=== PATIENT | male | born 1965 | race Caucasian/White ===

== ENCOUNTER → 2019-03-08 09:04 | Outpatient (BNVA) | payer BC, SELFPAY | PROVIDERS: Family Provider Nurse Practitioner Family; Visit Provider Nurse Practitioner Family | DX: Z76.89 Persons encountering health services in other specified circumstances (principal); E78.5 Hyperlipidemia, unspecified; I10 Essential (primary) hypertension; K21.9 Gastro-esophageal reflux disease without esophagitis | CPT/HCPCS: 80048; 80061; 84443 ==

== ENCOUNTER → 2019-03-24 11:36 | Outpatient (BNVA) | payer BC, SELFPAY | PROVIDERS: Family Provider Nurse Practitioner Family; Visit Provider Nurse Practitioner Family | DX: D50.9 Iron deficiency anemia, unspecified (principal); E78.2 Mixed hyperlipidemia; D64.9 Anemia, unspecified; I10 Essential (primary) hypertension | CPT/HCPCS: 80076; 83540; 85007; 85027 ==

== ENCOUNTER → 2019-11-16 10:15 | Outpatient (BNVA) | payer BC, SELFPAY | PROVIDERS: Family Provider Nurse Practitioner Family; Visit Provider Nurse Practitioner Family | DX: K14.6 Glossodynia (principal); D50.9 Iron deficiency anemia, unspecified; L23.9 Allergic contact dermatitis, unspecified cause; R53.83 Other fatigue; W57.XXXA Bitten or stung by nonvenomous insect and other nonvenomous arthropods, initial encounter | CPT/HCPCS: 80053; 82306; 82607; 85025; 86618; 86666; 86757 ==

== ENCOUNTER 2020-01-13 13:02 | Outpatient (CLI) | payer BC, SELFPAY ==
[2020-01-13 14:07] LABS: Basophils # 0.1 10^3/uL (0.0-0.1); Basophils % 0.9 %; Eosinophils # 0.1 10^3/uL (0.0-0.8); Eosinophils % 1.3 %; Hematocrit 43.8 % (42.0-52.0); Lymphocytes # 2.1 10^3/uL (0.8-4.8); Lymphocytes % 28.2 %; Mean Corpuscular Hemoglobin 29.5 pg (28.0-34.0); Mean Corpuscular Volume 92.4 fL (80-94); Mean Platelet Volume 10.3 fL (7.4-10.4); Monocytes # 0.5 10^3/uL (0.2-0.9); Monocytes % 6.7 %; Neutrophils # 4.67 10^3/uL (1.8-7.7); Neutrophils % 62.6 %; Nucleated Red Blood Cells % 0 %; Platelet Count 326 10^3/cmm (130-400); Red Blood Count 4.74 10^6/uL (4.1-5.3); Red Cell Distribution Width 12.2 % (12.1-15.1); White Blood Count 7.5 10^3/uL (4.0-10.0)
[2020-01-13 14:21] LABS: Alanine Aminotransferase 13 U/L (0-41); Albumin Level 4.4 g/dL (3.5-5.2); Alkaline Phosphatase 85 IU/L (40-130); Anion Gap 13.7 (5-19); Aspartate Amino Transferase 11 U/L (0-40); Blood Urea Nitrogen 16 mg/dL (6-20); Calcium 9.3 mg/dL (8.5-10.5); Carbon Dioxide 28 mmol/L (22-29); Chloride 102 mmol/L (98-107); Ferritin 21 ng/mL (30-400); Globulin 2.7 g/dL (1.3-4.6); Glomerular Filtration Rate 57.1 mL/min (90-130); Glucose 98 mg/dL (65-115); Osmolality Calculated 291 mOsm/kg (285-295); Potassium 3.7 mmol/L (3.5-5.1); Sodium 140 mmol/L (136-145); Total Bilirubin 0.3 mg/dL (0.15-1.2); Total Protein 7.1 g/dL (6.6-8.7)
== END 2020-01-13 13:03 | disposition home or self-care (01) ==
PROVIDERS: Visit Provider Registered Nurse
DX: I10 Essential (primary) hypertension (principal); D50.9 Iron deficiency anemia, unspecified
CPT/HCPCS: 36415; 80053; 82728; 85025

== ENCOUNTER → 2020-01-16 13:41 | Outpatient (BNVA) | payer BC, SELFPAY | PROVIDERS: Family Provider Nurse Practitioner Family; Visit Provider Registered Nurse | DX: J01.40 Acute pansinusitis, unspecified (principal); I10 Essential (primary) hypertension; D50.9 Iron deficiency anemia, unspecified | CPT/HCPCS: 83540; 83550 ==

== ENCOUNTER → 2020-09-06 09:56 | Outpatient (BNVA) | payer OTHER, SELFPAY | PROVIDERS: Family Provider Nurse Practitioner Family; Visit Provider Nurse Practitioner Family | DX: Z11.52 Encounter for screening for COVID-19 (principal); Z20.822 Contact with and (suspected) exposure to COVID-19 | CPT/HCPCS: 87635 ==

== ENCOUNTER → 2020-10-12 10:56 | Outpatient (BNVA) | payer OTHER, SELFPAY | PROVIDERS: Family Provider Nurse Practitioner Family; Visit Provider Registered Nurse | DX: I10 Essential (primary) hypertension (principal); Z76.89 Persons encountering health services in other specified circumstances | CPT/HCPCS: 80053; 80061; 85025; 86618; 86666; 86757 ==

== ENCOUNTER → 2022-06-18 09:49 | Outpatient (BNVA) | payer SELFPAY | PROVIDERS: Family Provider Nurse Practitioner Family; PCP Registered Nurse; Visit Provider Thoracic Surgery (Cardiothoracic Vascular Surgery) | DX: L02.212 Cutaneous abscess of back [any part, except buttock and flank] (principal); I96 Gangrene, not elsewhere classified | CPT/HCPCS: 87070; 87077; 87186 ==

== ENCOUNTER → 2022-06-26 11:35 | Outpatient (BNVA) | payer OTHER, SELFPAY | PROVIDERS: Family Provider Nurse Practitioner Family; PCP Registered Nurse; Visit Provider Registered Nurse | DX: Z00.00 Encounter for general adult medical examination without abnormal findings (principal); I10 Essential (primary) hypertension; E78.5 Hyperlipidemia, unspecified | CPT/HCPCS: 80053; 80061; 85025 ==

== ENCOUNTER → 2023-01-16 13:11 | Outpatient (BNVA) | payer OTHER, SELFPAY | PROVIDERS: Family Provider Nurse Practitioner Family; PCP Registered Nurse; Visit Provider Registered Nurse | DX: R10.9 Unspecified abdominal pain (principal); R50.9 Fever, unspecified | CPT/HCPCS: 81000 ==

== ENCOUNTER → 2023-01-21 09:12 | Outpatient (BNVA) | payer OTHER, SELFPAY | PROVIDERS: Family Provider Nurse Practitioner Family; PCP Registered Nurse; Visit Provider Registered Nurse | DX: R50.9 Fever, unspecified (principal) | CPT/HCPCS: 80053; 85025; 85651; 86140 ==

== ENCOUNTER → 2023-01-22 16:52 | Outpatient (BNVA) | payer OTHER, SELFPAY | PROVIDERS: Family Provider Nurse Practitioner Family; PCP Registered Nurse; Visit Provider Registered Nurse | DX: R50.9 Fever, unspecified (principal); R73.9 Hyperglycemia, unspecified | CPT/HCPCS: 83036 ==

== ENCOUNTER → 2023-10-30 11:38 | Outpatient (BNVA) | payer OTHER, SELFPAY | PROVIDERS: Family Provider Nurse Practitioner Family; PCP Registered Nurse; Visit Provider Registered Nurse | DX: I10 Essential (primary) hypertension (principal); D50.9 Iron deficiency anemia, unspecified; E53.8 Deficiency of other specified B group vitamins | CPT/HCPCS: 80053; 82607; 83550; 85025 ==

== ENCOUNTER 2023-11-23 10:15 | Day surgery (SDC) | payer OTHER, SELFPAY ==
[2023-11-23 10:34] VITALS: BP 170/105; PULSE 54; RESP 18; TEMP 36.1; O2SAT 96; BMI 27.0
[2023-11-23] MEDS: sodium chloride 0.9% 1,000 ML 30 ML IV (10:38)
--- NOTE | 2023-11-23 11:06 | ANES.PREANE2 ---
Pre-Anesthetic Assessment Height/Weight: Height 1.85 m Weight 92.986 kg Temp Pulse Resp BP Pulse Ox O2 Del Method 97.0 F L 54 L 18 170/105 96 Room Air 11/23/23 10:34 11/23/23 10:34 11/23/23 10:34 11/23/23 10:34 11/23/23 10:34 11/23/23 10:34 Preop Diagnosis: Anemia Operation Date: 11/23/23 10:15 Proposed Procedures p EGD- k21.9, d50.9(Not Applicable) - Lucio Torres, DO Was Beta Yenni taken within 24 hours: Yes Was Clonidine taken within 24 hours: N/A Last intake: Intake Last Liquid Date 11/22/23 Last Liquid Time 23:50 Last Solid Date 11/22/23 Last Solid Time 23:50 Social No alcohol and No tobacco Exam alert, oriented x 3, clear to auscultation bilaterally and regular rate & rhythm Airway Submandibular: within normal limits Cervical ROM: within normal limits Mallampati: Class II Dentition: full History/ROS No significant history except as noted and No significant complaints Pulmonary Hx PE CV/HEM Hypertension (Hx PFO repair) None reported Hepatic None reported GI None reported Metabolic None reported Musc/skel None reported Neuropsych Cerebrovascular Accident Anesthetic Plan ASA status: 3 Anesthesia: Anesthesia Evaluation and MAC Risk of > 500 ml blood loss (7ml/kg in children): No Medications/Allergies Home Medications Medication Instructions Recorded Confirmed Last Taken Type glucosamine sulfate 500 mg tablet 1,000 mg PO DAILY 02/15/19 11/19/23 11/22/23 History simvastatin 20 mg tablet 20 mg PO DAILY #90 tabs 06/12/21 11/19/23 11/22/23 Rx hydralazine 25 mg tablet 25 mg PO BID 06/26/22 11/19/23 11/23/23 09:00 History clopidogrel 75 mg tablet 75 mg PO DAILY 10/30/23 11/19/23 11/17/23 History amlodipine 5 mg tablet 5 mg PO DAILY 11/19/23 11/19/23 11/23/23 09:00 History cholecalciferol (vitamin D3) 50 50 mcg PO DAILY 11/19/23 11/19/23 11/22/23 History mcg (2,000 unit) capsule (Vitamin D3) ferrous sulfate 325 mg (65 mg 325 mg PO BID 11/19/23 11/19/23 11/22/23 History iron) tablet (FeroSul) metoprolol tartrate 25 mg tablet 25 mg PO BID 11/19/23 11/19/23 11/23/23 09:00 History multivitamin with folic acid 400 1 tab PO DAILY 11/19/23 11/19/23 11/22/23 History mcg tablet (Daily-Jocelyn (with folic acid)) pantoprazole 40 mg tablet,delayed 40 mg PO BID 11/19/23 11/19/23 11/22/23 History release potassium chloride 20 mEq 20 meq PO DAILY 11/19/23 11/19/23 11/22/23 History tablet,extended release sertraline 50 mg tablet 75 mg PO BID 11/19/23 11/19/23 11/22/23 History sucralfate 1 gram tablet 1 g PO BID 11/19/23 11/19/23 11/22/23 History telmisartan 80 0.5 tab PO DAILY 11/19/23 11/19/23 11/22/23 History mg-hydrochlorothiazide 25 mg tablet trazodone 50 mg tablet 50 - 100 mg PO BEDTIME 11/19/23 11/19/23 11/22/23 History Allergies Allergy/AdvReac Type Severity Reaction Status Date / Time ciprofloxacin Allergy Mild rash Verified 11/05/23 08:14 Current Medications Generic Name Dose Route Start Last Admin Trade Name Freq PRN Reason Stop Dose Admin Sodium Chloride 1,000 mls @ 30 mls/hr 11/23/23 10:30 11/23/23 10:38 Sodium Chloride 0.9% IV 11/24/23 10:29 30 mls/hr .Q24H LLOYD Administration PFSH Anesthesia Medical History Family history of colon cancer sister Depression Essential hypertension Hyperlipidemia Insomnia Anemia Colon polyp, hyperplastic History of CVA (cerebrovascular accident) Diagnosed 10/2015. Dr. Harmon-neurology HTN (hypertension), benign Surgical History History of loop recorder placed in Mar 2016 Hx of appendectomy S/P patent foramen ovale closure Social History Smoking and tobacco/nicotine status: never used tobacco/nicotine Second hand smoke exposure: No Alcohol intake: unknown Substance/Drug Use: never Household members: spouse Housing: House Marital status: Current gender identity: Male Data Anesthesia Cardiac Studies: No Data to Display
--- NOTE | 2023-11-23 11:42 | W.PM.OPSUD ---
Surgery/Procedure H&P Update DATE OF PROCEDURE: November 23, 2023 DATE H&P PERFORMED: 11/05/23 H&P UPDATE INFORMATION: I have reviewed H&P completed within last 30 days, I have examined patient prior to procedure and No changes to prior documentation PREOP DIAGNOSIS: Anemia PLANNED PROCEDURE: Operation Date: 11/23/23 10:15 Proposed Procedures p EGD- k21.9, d50.9(Not Applicable) - Lucio Torres DO
[2023-11-23 12:02] VITALS: BP 126/83; PULSE 52; RESP 20; TEMP 36.1; O2SAT 95
[2023-11-23 12:24] VITALS: BP 143/86; PULSE 50; RESP 20; O2SAT 97
--- NOTE | 2023-11-23 12:34 | ANE.PACU2 ---
Inpatient post-anesthesia follow up: Airway intact: Yes Vital signs: Temperature 97.0 F Pulse Rate 50 Respiratory Rate 20 Blood Pressure 143/86 Pulse Oximetry 97 Oxygen Delivery Me thod Room Air Oxygen Flow Rate Fraction of Inspir ed Oxygen Hydration adequate: Yes Nausea and vomiting: No Pain level: 1 Mental status: Baseline
== END 2023-11-23 12:34 | disposition home or self-care (01) ==
PROVIDERS: PCP Registered Nurse; Visit Provider Surgery
PROC: 0DJ08ZZ Inspection of Upper Intestinal Tract, Via Natural or Artificial Opening Endoscopic (ICD-10-PCS; CPT 43235; principal; 2023-11-23 10:15)
DX: D50.9 Iron deficiency anemia, unspecified (principal); K29.50 Unspecified chronic gastritis without bleeding; K21.00 Gastro-esophageal reflux disease with esophagitis, without bleeding; Z86.711 Personal history of pulmonary embolism; I10 Essential (primary) hypertension; Z86.73 Personal history of transient ischemic attack (TIA), and cerebral infarction without residual deficits
CPT/HCPCS: 43239; 43251; 88305; 88342; J2704; J7030

== ENCOUNTER 2023-11-30 16:11 | Outpatient (CLI) | payer OTHER, SELFPAY ==
--- NOTE | 2023-11-30 16:30 | US_ITS ---
WS: [id number] ULTRASOUND LEFT BREAST, Limited HISTORY: N60.02 - Solitary cyst of left breast, male patient COMPARISON: None available. TECHNIQUE: 2-D and Doppler. LEFT breast ultrasound is directed to the 7:00 area by the patient. There is a palpable abnormality. Palpable abnormality corresponds to an irregular shaped indistinct and slightly hyperechoic mass. Mas s measures 1.4 x 1.8 x 1.1 cm. This is indistinct with slight increased echogenicity. No increased va scularity. Very benign in appearance. No additional abnormalities. US/US breast LT complete [id number] IMPRESSION: BI-RADS: 2- Benign FOLLOW-UP: See Report Palpable abnormality at 7:00 in the LEFT breast is most likely a very small lip tiffany or area of fat necrosis.
== END 2023-11-30 16:12 | disposition home or self-care (01) ==
LOC: RAD 16:13
PROVIDERS: PCP Registered Nurse; Visit Provider Registered Nurse
DX: N63.24 Unspecified lump in the left breast, lower inner quadrant (principal)
CPT/HCPCS: 76641

== ENCOUNTER 2023-12-07 10:02 | Outpatient (CLI) | payer OTHER, SELFPAY ==
--- NOTE | 2023-12-07 08:00 | US_ITS ---
WS: [id number] RIGHT UPPER QUADRANT ULTRASOUND HISTORY: Abdominal pain COMPARISON: 08/24/2015 Liver: 15.3 cm in length. Normal size liver and echogenicity. No bile duct dilatation or mass. Hepati c hemangioma noted on the prior ultrasound from 2015 is not identified today. Portal Vein: Normal hepatopetal flow with monophasic waveform. Gallbladder: Normally distended gallbladder with no stones or wall thickening. CBD: 0.3 cm Pancreas: Completely obscured by bowel gas. Right kidney: 10.1 cm in length. Normal size and echogenicity. No hydronephrosis or mass. Aorta and IVC: Unremarkable abdominal aorta and IVC. No ascites. US/US gall bladder [id number] IMPRESSION: 1. Negative gallbladder. 2. Previously described hepatic hemangioma is not identified today. 3. Negative liver.
== END 2023-12-07 10:03 | disposition home or self-care (01) ==
LOC: RAD 10:03
PROVIDERS: PCP Registered Nurse; Visit Provider Surgery
DX: R10.9 Unspecified abdominal pain (principal)
CPT/HCPCS: 76705

== ENCOUNTER 2023-12-11 07:18 | Oncology outpatient (recurring) (ONCR) | payer OTHER, SELFPAY ==
[2023-12-11 08:04] LABS: Basophils # 0.1 10^3/uL (0.0-0.1); Basophils % 1.3 %; Eosinophils # 0.1 10^3/uL (0.0-0.8); Eosinophils % 2.7 %; Hematocrit 42.5 % (37-53); Lymphocytes # 1.2 10^3/uL (0.8-4.8); Lymphocytes % 26.7 %; Mean Corpuscular HGB Conc 30.6 g/dL (30-55); Mean Corpuscular Hemoglobin 26.7 pg (27-33); Mean Corpuscular Volume 87.3 fl (82-101); Mean Platelet Volume 10.1 fL (7.4-10.4); Monocytes # 0.3 10^3/uL (0.2-0.9); Monocytes % 7.6 %; Neutrophils # 2.78 10^3/uL (1.8-7.7); Neutrophils % 61.7 %; Nucleated Red Blood Cells % 0 %; Platelet Count 219 10^3/cmm (157-399); Red Blood Count 4.87 10^6/uL (3.85-5.65); Reticulocyte % 0.9 % (0.5-2.0)
[2023-12-11 08:18] LABS: Alanine Aminotransferase 13 U/L (0-41); Albumin Level 4.2 g/dL (3.5-5.2); Alkaline Phosphatase 73 U/L (40-130); Anion Gap 11.7 (5-19); Aspartate Amino Transferase 15 U/L (0-40); Blood Urea Nitrogen 14 mg/dL (8-23); Calcium 8.8 mg/dL (8.5-10.5); Carbon Dioxide 28 mmol/L (22-29); Chloride 105 mmol/L (98-107); Creatinine Clr Calc Pharmacy 80.1722; Ferritin 49 ng/mL (30-400); Globulin 1.7 g/dL (1.3-4.6); Glomerular Filtration Rate 61.8 mL/min (90-130); Glucose 103 mg/dL (65-115); Iron 73 ug/dL (59-158); Lactate Dehydrogenase 147 U/L (135-225); Osmolality Calculated 293 mOsm/kg (285-295); Percent Saturation 21.7 % (20-50); Potassium 3.7 mmol/L (3.5-5.1); Sodium 141 mmol/L (136-145); Total Bilirubin 0.3 mg/dL (0.15-1.2); Total Iron Binding Capacity 336 mcg/dl; Total Protein 5.9 g/dL (6.6-8.7); Unsaturated Iron Binding 263 ug/dL (112-347)
[2023-12-11] MEDS: cyanocobalamin 1,000 mcg/mL SDV 1000 MCG IM (09:35)
[2023-12-15 17:14] LABS: Vitamin B12 296 pg/mL (232-1245)
[2023-12-17 12:19] LABS: Soluble Transferrin Receptor 1.78 mg/L (0.76-1.76)
== END 2024-01-09 23:59 | disposition home or self-care (01) ==
PROVIDERS: PCP Registered Nurse; Visit Provider Internal Medicine Hematology & Oncology
DX: E61.1 Iron deficiency (principal); Z79.899 Other long term (current) drug therapy
CPT/HCPCS: 36415; 80053; 82607; 82728; 82746; 83540; 83550; 83615; 84238; 85025; 85045; 96372; J3420

== ENCOUNTER 2023-12-11 09:51 | Outpatient (CLI) | payer OTHER, SELFPAY ==
--- NOTE | 2023-12-11 10:00 | NM_ITS ---
WS: [id number] NUCLEAR MEDICINE HIDA SCAN WITH GALLBLADDER EJECTION FRACTION HISTORY: Abdominal pain COMPARISON: Gallbladder ultrasound 12/07/2023 TECHNIQUE: The patient was intravenously injected with 7.6 mCi of TC99m Mebrofenin. Immediate imaging over the right upper quadrant was followed by 5 minute image and additional images for a total of 60 minutes. Normal uptake of radiotracer throughout the liver. Activity identified in the gallbladder at 10 minutes and well distended by 60 minutes. Activity in the proximal small bowel was seen by 16 minutes. Good washout of the radiotracer from the liver by 60 minutes. The patient then drank 8 ounces of Ensure Plus. Ejection fraction at 60 minutes was 82%. Normal GB ej ection fraction is 35-75%. Post fatty meal symptoms: None. NM/NM hepatobiliary w phar* [id number] IMPRESSION: 1. Normal HIDA scan. 2. Normal gallbladder ejection fraction.
== END 2023-12-11 09:52 | disposition home or self-care (01) ==
LOC: RAD 09:51
PROVIDERS: PCP Registered Nurse; Visit Provider Surgery
DX: K80.50 Calculus of bile duct without cholangitis or cholecystitis without obstruction (principal); R10.9 Unspecified abdominal pain
CPT/HCPCS: 78227; A9537

== ENCOUNTER 2024-01-12 10:29 | Day surgery (SDC) | payer OTHER, SELFPAY ==
[2024-01-12] VITALS (10 sets, daily range): BP systolic 129–185; BP diastolic 89–121; PULSE 44–63; RESP 16–20; TEMP 36.1–36.3; O2SAT 93–100; BMI 25.0
--- NOTE | 2024-01-12 11:08 | W.PM.OPSUD ---
Surgery/Procedure H&P Update DATE OF PROCEDURE: January 12, 2024 DATE H&P PERFORMED: 01/04/24 H&P UPDATE INFORMATION: I have reviewed H&P completed within last 30 days, I have examined patient prior to procedure and No changes to prior documentation PLANNED PROCEDURE: Operation Date: 01/12/24 11:55 Proposed Procedures p Laparoscopic Cholecystectomy 84815, k82.8(Not Applicable) - Lucio Torres DO
[2024-01-12] MEDS: sodium chloride 0.9% 1,000 ML 30 ML IV (11:12)
--- NOTE | 2024-01-12 11:35 | ANES.PREANE2 ---
Pre-Anesthetic Assessment Height/Weight: Height 6 ft 2 in Weight 195 lb Temp Pulse Resp BP Pulse Ox O2 Del Method 97 F L 60 18 129/89 97 Room Air 01/12/24 10:58 01/12/24 10:58 01/12/24 10:58 01/12/24 10:58 01/12/24 10:58 01/12/24 10:58 Preop Diagnosis: Chronic cholecystitis Operation Date: 01/12/24 11:55 Proposed Procedures p Laparoscopic Cholecystectomy 72983, k82.8(Not Applicable) - Lucio Torres, DO Was Beta Yenni taken within 24 hours: N/A Was Clonidine taken within 24 hours: N/A Last intake: Intake Last Liquid Date 01/11/24 Last Liquid Time 23:00 Last Solid Date 01/11/24 Last Solid Time 19:00 Social No alcohol and No tobacco Exam alert, oriented x 3, clear to auscultation bilaterally and regular rate & rhythm Airway Submandibular: within normal limits Cervical ROM: within normal limits Mallampati: Class II Dentition: full Anesthetic Plan ASA status: 3 Anesthesia: General Other: No prior issues with anesthesia NPO since yesterday History of hypertension on telmisartan?HCTZ, hydralazine and metoprolol. BB taken yesterday. Preop BP 129/89 Prior CVAs, on chronic Plavix. Last taken 6 days ago Labs reviewed 12/11/2023 acceptable for procedure Plan for GETA Medications/Allergies Home Medications Medication Instructions Recorded Confirmed Last Taken Type glucosamine sulfate 500 mg tablet 1,000 mg PO DAILY 02/15/19 01/11/24 01/11/24 History simvastatin 20 mg tablet 20 mg PO DAILY #90 tabs 06/12/21 01/11/24 01/11/24 Rx hydralazine 25 mg tablet 25 mg PO BID 06/26/22 01/11/24 01/11/24 History clopidogrel 75 mg tablet 75 mg PO DAILY 10/30/23 01/11/24 01/06/24 History cholecalciferol (vitamin D3) 50 50 mcg PO DAILY 11/19/23 01/11/24 01/11/24 History mcg (2,000 unit) capsule (Vitamin D3) metoprolol tartrate 25 mg tablet 25 mg PO BID 11/19/23 01/11/24 01/11/24 History multivitamin with folic acid 400 1 tab PO DAILY 11/19/23 01/11/24 01/11/24 History mcg tablet (Daily-Jocelyn (with folic acid)) pantoprazole 40 mg tablet,delayed 40 mg PO BID 11/19/23 01/11/24 01/11/24 History release potassium chloride 20 mEq 20 meq PO DAILY 11/19/23 01/11/24 01/11/24 History tablet,extended release sertraline 50 mg tablet 75 mg PO BID 11/19/23 01/11/24 01/11/24 History telmisartan 80 0.5 tab PO DAILY 11/19/23 01/11/24 01/11/24 History mg-hydrochlorothiazide 25 mg tablet trazodone 50 mg tablet 50 - 100 mg PO BEDTIME 11/19/23 01/11/24 01/10/24 History sucralfate 1 gram tablet 1 g PO TID 90 days #270 tabs 12/07/23 01/11/24 01/11/24 Rx amlodipine 5 mg tablet 5 mg PO DAILY #90 tabs 12/10/23 01/11/24 01/11/24 Rx cyclobenzaprine 10 mg tablet 10 mg PO TID PRN muscle spasms 12/10/23 01/11/24 Unknown History riboflavin (vitamin B2) 400 mg 400 mg PO DAILY 12/10/23 01/11/24 01/11/24 History tablet tamsulosin 0.4 mg capsule (Flomax) 0.4 mg PO DAILY prostate #90 caps 12/10/23 01/11/24 01/11/24 Rx ferrous sulfate 325 mg (65 mg 325 mg PO BID 01/11/24 01/11/24 01/11/24 History iron) tablet (FeroSul) Allergies Allergy/AdvReac Type Severity Reaction Status Date / Time ciprofloxacin Allergy Mild rash Verified 01/11/24 15:41 Current Medications Generic Name Dose Route Start Last Admin Trade Name Freq PRN Reason Stop Dose Admin Sodium Chloride 1,000 mls @ 30 mls/hr 01/12/24 11:00 01/12/24 11:12 Sodium Chloride 0.9% IV 01/13/24 10:59 30 mls/hr .Q24H LLOYD Administration PFSH Anesthesia Medical History Family history of colon cancer sister Depression Essential hypertension Hyperlipidemia Insomnia Anemia Colon polyp, hyperplastic History of CVA (cerebrovascular accident) Diagnosed 10/2015. Dr. Harmon-neurology HTN (hypertension), benign Surgical History History of loop recorder placed in Mar 2016 Hx of appendectomy S/P patent foramen ovale closure Social History Smoking and tobacco/nicotine status: never used tobacco/nicotine Second hand smoke exposure: No Alcohol intake: unknown Substance/Drug Use: never Household members: spouse Housing: House Marital status: Current gender identity: Male Data Anesthesia Cardiac Studies: No Data to Display
[2024-01-12] MEDS: ceFAZolin 2,000 mg SDV 2000 MG IVP (11:48)
[2024-01-12] MEDS: lidocaine-epi 2% PF 1:200,000 20 mL SDV XX (12:37)
--- NOTE | 2024-01-12 12:37 | P.OP_ITS ---
Operative Report Date of procedure: January 12, 2024 Surgeon: Lucio Torres DO Brief History: This is a very pleasant 58-year-old gentleman who presented to office with abdominal pain. He was diagnosed with biliary dyskinesia. Laparoscopic cholecystectomy was indicated. The risks and benefits were explained and documented. Procedure: Preoperative diagnosis: Biliary dyskinesia Postoperative diagnosis: Same Procedure performed: Laparoscopic cholecystectomy Surgeon: Dr. Lucio Torres DO Estimated blood loss: 5 mL Specimens: Gallbladder to pathology Complications: None apparent Description of procedure: Patient was wheeled into the operative room and placed on the OR table in a supine position. Abdomen was inspected prepped and draped in usual sterile fashion. Time-out was performed and all present were in agreement. A 15 blade scalp was used to make a stab incision in the left upper quadrant and intra- abdominal insufflation was achieved using a Veress needle. After localizing the tissue incisions were made and a 5 millimeter trocar was placed into the umbilicus as well as 2 in the right upper quadrant. A 12 millimeter trocar was placed in the epigastrium. Gallbladder was grasped and elevated. The triangle of Calot was carefully dissected using blunt dissection and electrocautery until the triangle of Calot clearly identified. The cystic duct was clipped proximally and double clipped distally. The duct was then ligated proximally. The cystic artery was doubly clipped and ligated. The gallbladder was then removed from the liver bed using electrocautery. The gallbladder was removed from the abdomen using an Endo-Catch bag through the epigastric incision. The liver bed was inspected and no bleeding was seen. The abdomen was irrigated and suctioned. All ports removed. Skin was washed and dried. Incisions were closed with 4-0 Monocryl in a subcuticular interrupted fashion. Skin glue was applied. Patient tolerated the procedure well.
[2024-01-12] MEDS: fentaNYL 50 mcg/mL INJ 2mL IVP (13:07)
[2024-01-12] MEDS: ondansetron 2 mg/ML SDV 2 mL 4 MG IVP ×2 (13:34→13:53)
[2024-01-12] MEDS: diphenhydrAMINE 50 mg/mL SDV 1mL 12.5 MG IVP (14:07)
--- NOTE | 2024-01-12 14:57 | ANE.PACU2 ---
Inpatient post-anesthesia follow up: Airway intact: Yes Vital signs: Temperature 97.3 F Pulse Rate 60 Respiratory Rate 18 Blood Pressure 170/104 Pulse Oximetry 95 Oxygen Delivery Me thod Room Air Oxygen Flow Rate 6 Fraction of Inspir ed Oxygen Hydration adequate: Yes Nausea and vomiting: No Pain level: 1 Mental status: Baseline
== END 2024-01-12 14:58 | disposition home or self-care (01) ==
PROVIDERS: PCP Registered Nurse; Visit Provider Surgery
PROC: 0FT44ZZ Resection of Gallbladder, Percutaneous Endoscopic Approach (ICD-10-PCS; CPT 47562; principal; 2024-01-12 11:55)
DX: K81.1 Chronic cholecystitis (principal); I10 Essential (primary) hypertension; Z86.73 Personal history of transient ischemic attack (TIA), and cerebral infarction without residual deficits; Z79.02 Long term (current) use of antithrombotics/antiplatelets
CPT/HCPCS: 47562; 88304; J0330; J0690; J1100; J1200; J2405; J2704; J2710; J3010; J3490; J7030

== ENCOUNTER 2024-02-15 11:27 | Oncology outpatient (recurring) (ONCR) | payer OTHER, SELFPAY ==
[2024-02-15 12:14] LABS: Basophils # 0.1 10^3/uL (0.0-0.1); Basophils % 1.1 %; Eosinophils # 0.1 10^3/uL (0.0-0.8); Eosinophils % 1.9 %; Hematocrit 43.8 % (37-53); Lymphocytes # 1.6 10^3/uL (0.8-4.8); Lymphocytes % 30.3 %; Mean Corpuscular HGB Conc 32.2 g/dL (30-55); Mean Corpuscular Hemoglobin 28.7 pg (27-33); Mean Platelet Volume 9.8 fL (7.4-10.4); Monocytes # 0.4 10^3/uL (0.2-0.9); Neutrophils # 3.06 10^3/uL (1.8-7.7); Neutrophils % 58.5 %; Nucleated Red Blood Cells % 0 %; Platelet Count 207 10^3/cmm (157-399); Red Blood Count 4.92 10^6/uL (3.85-5.65); White Blood Count 5.24 10^3/uL (3.29-11.43)
[2024-02-15 12:15] LABS: Reticulocyte % 1.1 % (0.5-2.0)
[2024-02-15 12:56] LABS: Alanine Aminotransferase 12 U/L (0-41); Albumin Level 3.9 g/dL (3.5-5.2); Alkaline Phosphatase 83 U/L (40-130); Aspartate Amino Transferase 14 U/L (0-40); Blood Urea Nitrogen 11 mg/dL (8-23); Calcium 9.3 mg/dL (8.5-10.5); Carbon Dioxide 24 mmol/L (22-29); Chloride 102 mmol/L (98-107); Ferritin 48 ng/mL (30-400); Globulin 2.7 g/dL (1.3-4.6); Glomerular Filtration Rate 61.8 mL/min (90-130); Glucose 106 mg/dL (65-115); Iron 83 ug/dL (59-158); Lactate Dehydrogenase 139 U/L (135-225); Osmolality Calculated 286 mOsm/kg (285-295); Percent Saturation 26.7 % (20-50); Sodium 138 mmol/L (136-145); Total Bilirubin 0.2 mg/dL (0.15-1.2); Total Iron Binding Capacity 310 mcg/dl; Total Protein 6.6 g/dL (6.6-8.7); Unsaturated Iron Binding 227 ug/dL (112-347); Vitamin B12 434 pg/mL (232-1245)
[2024-02-15 13:48] LABS: Folate Level > 20.0 ng/mL (4.5-32.2)
[2024-02-19 11:54] LABS: Soluble Transferrin Receptor 1.08 mg/L (0.76-1.76)
== END 2024-03-11 23:59 | disposition home or self-care (01) ==
PROVIDERS: PCP Registered Nurse; Visit Provider Internal Medicine Hematology & Oncology
DX: E61.1 Iron deficiency (principal); Z79.899 Other long term (current) drug therapy
CPT/HCPCS: 36415; 80053; 82607; 82728; 82746; 83540; 83550; 83615; 84238; 85025; 85045

== ENCOUNTER 2024-03-16 08:32 | Day surgery (SDC) | payer OTHER, SELFPAY ==
[2024-03-16 08:45] VITALS: BP 113/71; PULSE 65; RESP 18; TEMP 36.2; O2SAT 95; BMI 25.7
[2024-03-16] MEDS: sodium chloride 0.9% 500 ML 15 ML IV (08:59)
--- NOTE | 2024-03-16 09:46 | ANES.PREANE2 ---
Pre-Anesthetic Assessment Height/Weight: Height 1.88 m Weight 90.718 kg Temp Pulse Resp BP Pulse Ox O2 Del Method 97.2 F L 65 18 113/71 95 Room Air 03/16/24 08:45 03/16/24 08:45 03/16/24 08:45 03/16/24 08:45 03/16/24 08:45 03/16/24 08:45 Preop Diagnosis: GERD / [place] screening Operation Date: 03/16/24 09:30 Proposed Procedures p EGD 28223, 51929, G0105, K21.9, K52.9(Not Applicable) - Lucio Torres DO s Colonoscopy(Not Applicable) - Lucio Torres DO Was Beta Yenni taken within 24 hours: Yes (metoprolol this monring) Was Clonidine taken within 24 hours: N/A Last intake: Intake Last Liquid Date 03/15/24 Last Liquid Time 20:00 Last Solid Date 03/14/24 Last Solid Time 22:30 Social No alcohol and No tobacco Airway Submandibular: within normal limits Cervical ROM: within normal limits Mallampati: Class II History/ROS No significant history except as noted Pulmonary None reported CV/HEM Hypertension chronick kidney disease Hepatic None reported GI Gastroesophageal Reflux Disease Metabolic None [place] [facility] [place] reported Anesthetic Plan ASA status: 2 Anesthesia: Anesthesia Evaluation and MAC Medications/Allergies Home Medications ?Medication ?Instructions ?Recorded ?Confirmed ?Last Taken ?Type glucosamine sulfate 500 mg tablet 500 mg PO BID 02/15/19 03/16/24 03/15/24 History simvastatin 20 mg tablet 20 mg PO DAILY #90 tabs 06/12/21 03/16/24 03/15/24 Rx hydralazine 25 mg tablet 25 mg PO BID 06/26/22 03/16/24 03/16/24 History clopidogrel 75 mg tablet 75 mg PO DAILY 10/30/23 03/16/24 03/10/24 History Held on 01/12/24. Instructions: Resume on 01/14/24. cholecalciferol (vitamin D3) 50 50 mcg PO DAILY 11/19/23 03/16/24 03/15/24 History mcg (2,000 unit) capsule (Vitamin D3) metoprolol tartrate 25 mg tablet 25 mg PO BID 11/19/23 03/16/24 03/16/24 History potassium chloride 20 mEq 20 meq PO DAILY 11/19/23 03/16/24 03/15/24 History tablet,extended release sertraline 50 mg tablet 75 mg PO BID 11/19/23 03/16/24 03/15/24 History telmisartan 80 0.5 tab PO DAILY 11/19/23 03/16/24 03/15/24 History mg-hydrochlorothiazide 25 mg tablet trazodone 50 mg tablet 50 - 100 mg PO BEDTIME 11/19/23 03/16/24 03/15/24 History Held on 01/12/24. Instructions: Resume on 01/13/24. sucralfate 1 gram tablet 1 g PO TID 90 days #270 tabs 12/07/23 03/16/24 03/15/24 Rx cyclobenzaprine 10 mg tablet 10 mg PO TID PRN muscle spasms 12/10/23 03/16/24 Unknown History riboflavin (vitamin B2) 400 mg 400 mg PO DAILY 12/10/23 03/16/24 03/15/24 History tablet tamsulosin 0.4 mg capsule (Flomax) 0.4 mg PO DAILY prostate #90 caps 12/10/23 03/16/24 03/15/24 Rx amlodipine 5 mg tablet 10 mg (2 x 5 mg) PO DAILY #180 tabs 01/14/24 03/16/24 03/16/24 Rx ferrous sulfate 325 mg (65 mg 325 mg PO BID #60 tabs 02/15/24 03/16/24 03/15/24 Rx iron) tablet (FeroSul) dicyclomine 20 mg tablet 20 mg PO QID 30 days #120 tabs 03/07/24 03/16/24 03/15/24 Rx Lactobacillus acidophilus 10 10,000 mmu cells PO BID 03/14/24 03/16/24 03/15/24 History billion cell capsule (Probiotic) calcium carbonate (Calcium 600) 600 mg PO DAILY 03/14/24 03/16/24 03/15/24 History magnesium carb,citrate,oxide 300 mg PO DAILY 03/14/24 03/16/24 03/15/24 History (Magnesium Complex) multivitamin with folic acid 400 1 tab PO DAILY 03/14/24 03/16/24 03/15/24 History mcg tablet (Daily-Jocelyn (with folic acid)) omeprazole 40 mg capsule,delayed 40 mg PO DAILY 03/14/24 03/16/24 03/15/24 History release pantoprazole 40 mg tablet,delayed 40 mg PO BEDTIME 03/14/24 03/16/24 03/15/24 History release Allergies Allergy/AdvReac Type Severity Reaction Status Date / Time ciprofloxacin Allergy Mild rash Verified 03/16/24 08:47 Current Medications Generic Name Dose Route Start Last Admin Trade Name Freq PRN Reason Stop Dose Admin Sodium Chloride 500 mls @ 15 mls/hr 03/16/24 08:38 03/16/24 08:59 Sodium Chloride 0.9% IV 03/17/24 08:37 15 mls/hr .Q24H PRN Administration COLONOSCOPY FLUIDS PFSH Anesthesia Medical History (Updated 03/07/24 @ 10:01 by Lucio Torres DO) Family history of colon cancer sister Depression Essential hypertension Hyperlipidemia Insomnia Anemia Colon polyp, hyperplastic History of CVA (cerebrovascular accident) Diagnosed 10/2015. Dr. Harmon-neurology HTN (hypertension), benign Surgical History (Updated 03/07/24 @ 10:01 by Lucio Torres DO) History of laparoscopic cholecystectomy History of loop recorder placed in Mar 2016 Hx of appendectomy S/P patent foramen ovale closure Social History Smoking and tobacco/nicotine status: never used tobacco/nicotine Second hand smoke exposure: No Alcohol intake: unknown Substance/Drug Use: never Household members: spouse Housing: House Marital status: Current gender identity: Male Data Anesthesia Cardiac Studies: No Data to Display
--- NOTE | 2024-03-16 09:53 | W.PM.OPSUD ---
Surgery/Procedure H&P Update DATE OF PROCEDURE: March 16, 2024 DATE H&P PERFORMED: 03/07/24 H&P UPDATE INFORMATION: I have reviewed H&P completed within last 30 days, I have examined patient prior to procedure and No changes to prior documentation PREOP DIAGNOSIS: GERD / [place] screening PLANNED PROCEDURE: Operation Date: 03/16/24 09:30 Proposed Procedures p EGD 10999, 92592, G0105, K21.9, K52.9(Not Applicable) - DO magali Fair Colonoscopy(Not Applicable) - Lucio Torres DO
[2024-03-16] MEDS: EPINEPHrine 1 mg/mL INJ XX (10:04)
[2024-03-16 10:34] VITALS: BP 131/83; PULSE 56; RESP 18; TEMP 36.3; O2SAT 94
[2024-03-16 10:53] VITALS: BP 145/86; PULSE 53; RESP 18; O2SAT 94
--- NOTE | 2024-03-16 11:15 | ANE.PACU2 ---
Inpatient post-anesthesia follow up: Airway intact: Yes Vital signs: Temperature 97.4 F Pulse Rate 53 Respiratory Rate 18 Blood Pressure 145/86 Pulse Oximetry 94 Oxygen Delivery Me thod Room Air Oxygen Flow Rate Fraction of Inspir ed Oxygen Hydration adequate: Yes Nausea and vomiting: No Pain level: 1 Mental status: Baseline
[2024-03-16 11:23] LABS: C.Diff PCR (Lab) NEGATIVE (Negative)
== END 2024-03-16 11:18 | disposition home or self-care (01) ==
PROVIDERS: PCP Registered Nurse; Visit Provider Surgery
PROC: 0DJ08ZZ Inspection of Upper Intestinal Tract, Via Natural or Artificial Opening Endoscopic (ICD-10-PCS; principal; 2024-03-16 09:30)
PROC: 0DJD8ZZ Inspection of Lower Intestinal Tract, Via Natural or Artificial Opening Endoscopic (ICD-10-PCS; CPT 45378; 2024-03-16 09:30)
DX: K57.30 Diverticulosis of large intestine without perforation or abscess without bleeding (principal); D12.2 Benign neoplasm of ascending colon; D12.4 Benign neoplasm of descending colon; K22.70 Barrett's esophagus without dysplasia; K31.7 Polyp of stomach and duodenum; K21.00 Gastro-esophageal reflux disease with esophagitis, without bleeding; I12.9 Hypertensive chronic kidney disease with stage 1 through stage 4 chronic kidney disease, or unspecified chronic kidney disease; N18.9 Chronic kidney disease, unspecified; Z79.899 Other long term (current) drug therapy; Z88.8 Allergy status to other drugs, medicaments and biological substances; Z80.0 Family history of malignant neoplasm of digestive organs; Z86.73 Personal history of transient ischemic attack (TIA), and cerebral infarction without residual deficits
CPT/HCPCS: 43239; 43251; 45385; 82274; 83630; 87045; 87177; 87209; 87427; 87449; 87493; 88305; 88342; J0171; J2704; J7040

== ENCOUNTER → 2024-03-24 10:40 | Outpatient (BNVA) | payer OTHER, SELFPAY | PROVIDERS: PCP Registered Nurse; Visit Provider Surgery | DX: K52.9 Noninfective gastroenteritis and colitis, unspecified (principal); R10.9 Unspecified abdominal pain | CPT/HCPCS: 86003; 86008 ==

== ENCOUNTER 2024-05-16 09:31 | Oncology outpatient (recurring) (ONCR) | payer OTHER, SELFPAY ==
[2024-05-16 09:51] LABS: Basophils % 0.6 %; Eosinophils # 0.1 10^3/uL (0.0-0.8); Eosinophils % 1.3 %; Hematocrit 40.3 % (37-53); Lymphocytes % 14.1 %; Mean Corpuscular Hemoglobin 30.5 pg (27-33); Mean Corpuscular Volume 92.4 fl (82-101); Monocytes # 0.5 10^3/uL (0.2-0.9); Monocytes % 6.8 %; Neutrophils % 76.9 %; Nucleated Red Blood Cells % 0 %; Platelet Count 208 10^3/cmm (157-399); Red Blood Count 4.36 10^6/uL (3.85-5.65); Red Cell Distribution Width 13.7 % (12.1-15.1); White Blood Count 6.89 10^3/uL (3.29-11.43)
[2024-05-16 10:11] LABS: Alanine Aminotransferase 12 U/L (0-41); Albumin Level 3.9 g/dL (3.5-5.2); Alkaline Phosphatase 90 U/L (40-130); Anion Gap 13.7 (5-19); Aspartate Amino Transferase 13 U/L (0-40); Blood Urea Nitrogen 12 mg/dL (8-23); Carbon Dioxide 25 mmol/L (22-29); Chloride 107 mmol/L (98-107); Creatinine Clr Calc Pharmacy 80.2741; Ferritin 39 ng/mL (30-400); Globulin 2.4 g/dL (1.3-4.6); Glomerular Filtration Rate 61.8 mL/min (90-130); Glucose 103 mg/dL (65-115); Iron 117 ug/dL (59-158); Osmolality Calculated 294 mOsm/kg (285-295); Percent Saturation 41.9 % (20-50); Potassium 3.7 mmol/L (3.5-5.1); Sodium 142 mmol/L (136-145); Total Bilirubin 0.4 mg/dL (0.15-1.2); Total Iron Binding Capacity 279 mcg/dl; Total Protein 6.3 g/dL (6.6-8.7); Unsaturated Iron Binding 162 ug/dL (112-347)
[2024-05-16 10:51] LABS: Folate Level 19.9 ng/mL (4.5-32.2)
== END 2024-06-08 23:59 | disposition home or self-care (01) ==
PROVIDERS: Nurse Practitioner Family; PCP Registered Nurse; Visit Provider Internal Medicine Medical Oncology
DX: D50.8 Other iron deficiency anemias (principal)
CPT/HCPCS: 36415; 80053; 82728; 82746; 83540; 83550; 85025

== ENCOUNTER 2024-08-15 11:54 | Oncology outpatient (recurring) (ONCR) | payer OTHER, SELFPAY ==
[2024-08-15 12:36] LABS: Hematocrit 38.7 % (37-53); Hemoglobin 12.80 g/dL (11.27-16.99); Mean Corpuscular HGB Conc 33.1 g/dL (30-55); Mean Corpuscular Hemoglobin 30.5 pg (27-33); Mean Corpuscular Volume 92.4 fl (82-101); Nucleated Red Blood Cells % 0 %; Platelet Count 231 10^3/cmm (157-399); Red Blood Count 4.19 10^6/uL (3.85-5.65); White Blood Count 7.02 10^3/uL (3.29-11.43)
[2024-08-15 12:59] LABS: Alanine Aminotransferase 15 U/L (0-41); Albumin Level 3.8 g/dL (3.5-5.2); Alkaline Phosphatase 101 U/L (40-130); Anion Gap 16.5 (5-19); Aspartate Amino Transferase 14 U/L (0-40); Blood Urea Nitrogen 16 mg/dL (8-23); Calcium 8.8 mg/dL (8.5-10.5); Carbon Dioxide 22 mmol/L (22-29); Chloride 106 mmol/L (98-107); Creatinine Clr Calc Pharmacy 74.8745; Ferritin 54 ng/mL (30-400); Globulin 2.5 g/dL (1.3-4.6); Glucose 91 mg/dL (65-115); Iron 92 ug/dL (59-158); Osmolality Calculated 293 mOsm/kg (285-295); Potassium 3.5 mmol/L (3.5-5.1); Sodium 141 mmol/L (136-145); Total Iron Binding Capacity 262 mcg/dl; Total Protein 6.3 g/dL (6.6-8.7); Unsaturated Iron Binding 170 ug/dL (112-347)
== END 2024-09-08 23:59 | disposition home or self-care (01) ==
PROVIDERS: Nurse Practitioner Family; PCP Registered Nurse; Visit Provider Internal Medicine Medical Oncology
DX: D50.8 Other iron deficiency anemias (principal)
CPT/HCPCS: 36415; 80053; 82728; 83540; 83550; 85025

== ENCOUNTER 2024-11-15 11:35 | Oncology outpatient (recurring) (ONCR) | payer OTHER, SELFPAY ==
[2024-11-15 12:12] LABS: Hematocrit 38.8 % (37-53); Hemoglobin 13.10 g/dL (11.27-16.99); Mean Corpuscular HGB Conc 33.8 g/dL (30-55); Mean Corpuscular Hemoglobin 30.6 pg (27-33); Mean Corpuscular Volume 90.7 fl (82-101); Nucleated Red Blood Cells % 0 %; Platelet Count 232 10^3/cmm (157-399); Red Blood Count 4.28 10^6/uL (3.85-5.65); White Blood Count 6.48 10^3/uL (3.29-11.43)
[2024-11-15 12:35] LABS: Alanine Aminotransferase 13 U/L (0-41); Albumin Level 4.1 g/dL (3.5-5.2); Alkaline Phosphatase 88 U/L (40-130); Anion Gap 14.6 (5-19); Aspartate Amino Transferase 14 U/L (0-40); Blood Urea Nitrogen 17 mg/dL (8-23); Calcium 9.1 mg/dL (8.5-10.5); Carbon Dioxide 25 mmol/L (22-29); Chloride 105 mmol/L (98-107); Ferritin 74 ng/mL (30-400); Globulin 2.6 g/dL (1.3-4.6); Glucose 97 mg/dL (65-115); Iron 103 ug/dL (59-158); Osmolality Calculated 293 mOsm/kg (285-295); Potassium 3.6 mmol/L (3.5-5.1); Sodium 141 mmol/L (136-145); Total Iron Binding Capacity 259 mcg/dl; Total Protein 6.7 g/dL (6.6-8.7); Unsaturated Iron Binding 156 ug/dL (112-347)
[2024-11-15 12:48] LABS: Vitamin B12 390 pg/mL (232-1245)
== END 2024-12-09 23:59 | disposition home or self-care (01) ==
PROVIDERS: Internal Medicine Medical Oncology; PCP Registered Nurse; Visit Provider Nurse Practitioner Family
DX: E53.8 Deficiency of other specified B group vitamins (principal)
CPT/HCPCS: 36415; 80053; 82607; 82728; 82746; 83540; 83550; 85025